=== PATIENT | female | born 1990 | race Two or more races ===

== ENCOUNTER 2021-04-09 15:27 | Emergency (ER) | payer MEDICAID ==
[~2021-04-09] VITALS: Ht 170.2 cm; Wt 93.6 kg
[~2021-04-09 15:27] MED LIST: NO HOME MEDS
[2021-04-09 18:00] VITALS: BP 113/58
--- NOTE | 2021-04-09 18:32 | PHYS DOC ---
Past Medical History Past Medical History: No Pertinent History Past Surgical History: Other Additional Past Surgical Histo: RECONSTRUCTIVE SURGERY TO THE RT SIDE OF FACE Smoking Status: Current Every Day Smoker Additional Information: 5-6 cigarettes daily Alcohol Use: Occasionally Drug Use: None Social History Narrative: occasional marijuana use General Adult EDM: Chief Complaint: BACK PAIN OR INJURY HPI: HPI: Patient is a 30 year old female who presents the ED today complaining of 8 out of 10 sharp intermittent bilateral low back pain, symptoms began 2 days ago after pulling her garage door down. Patient denies any pain radiating to bilateral lower extremities, denies any loss of bowel/bladder function. Denies any numbness or tingling to bilateral lower extremities. She states symptoms are worse on ambulation and certain movements. Denies anything specifically rel ieving her pain. Review of Systems: Review of Systems: Constitutional: Denies fever or chills. [] GI: Denies abdominal pain, nausea, vomiting, bloody stools or diarrhea. [] : Denies dysuria. [] Musculoskeletal: Reports low back pain Integument: Denies rash. [] Neurologic: Denies headache, focal weakness or sensory changes. [] [] Psychiatric: Denies depression or anxiety. [] Heart Score: C/O Chest Pain: N/A Risk Factors: Risk Factors: DM, Current or recent (<one month) smoker, HTN, HLP, family history of CAD, obesity. Risk Scores: Score 0 - 3: 2.5% MACE over next 6 weeks - Discharge Home Score 4 - 6: 20.3% MACE over next 6 weeks - Admit for Clinical Observation Score 7 - 10: 72.7% MACE over next 6 weeks - Early Invasive Strategies Allergies: Allergies: Allergies Coded Allergies Type Severity Reaction Last Updated Verified No Known Drug Allergies 04/09/21 No Physical Exam: PE: Constitutional: Well developed, well nourished, no acute distress, non-toxic appearance. [] Abdomen: Bowel sounds normal, soft, no tenderness, no masses, no pulsatile masses. [] Skin: Warm, dry, no erythema, no rash. [] Back: Diffuse paraspinal muscle tenderness bilateral lumbar spine, no midline lumbar spine tenderness, no CVA tenderness. [] Extremities: No tenderness, no cyanosis, no clubbing, ROM intact, no edema. [] Neurologic: Alert and oriented X 3, normal motor function, normal sensory function, no focal deficits noted. [] Psychologic: Affect normal, judgement normal, mood normal. [] Current Patient Data: Labs: Laboratory Tests Test 04/09/21 16:20 POC Urine HCG, Qualitative Hcg negative (Negative) Vital Signs: Vital Signs Date Time Temp Pulse Resp B/P (MAP) Pulse Ox O2 Delivery O2 Flow Rate FiO2 04/09/21 18:00 97.8 94 18 113/58 (76) 99 97.8 EKG: EKG: [] Radiology/Procedures: Radiology/Procedures: []PROCEDURE: LUMBAR SPINE 2-3V XR LUMBAR SPINE 2-3V History: Reason: pain pulling garage down / Spl. Instructions: / History: Technique: 3 views lumbar spine. Comparison: None. Findings: Normal vertebral body height and alignment. No acute fracture. Mild degenerative disc changes most prominent L5-S1. Calcification projecting over the right renal fossa measures 3 mm, likely nephrolithiasis. Impression: 1. Mild lumbar spondylosis most prominent L5-S1. 2. Probable right nephrolithiasis. Electronically signed by: Jean Faust DO (04/09/2021 7:06 PM) [facility] DICTATED and SIGNED BY: JEAN FAUST DO DATE: 04/09/21 [id number] 0 Course & Med Decision Making: Course & Med Decision Making Pertinent Labs and Imaging studies reviewed. (See chart for details) This is a 30-year-old female patient presented to the ED today with low back pain that began 2 days ago after pulling her garage door down. Lumbar spine x- rays are negative for any acute findings, noted for L5-S1 lumbar spondylosis and right nephrolithiasis. Discharged home. Follow-up with PCP. Provided return precautions Dragon Disclaimer: Bridget Disclaimer: This electronic medical record was generated, in whole or in part, using a voice recognition dictation system. Departure Departure Impression: Primary Impression: Lumbosacral strain Qualified Codes: S39.012A - Strain of muscle, fascia and tendon of lower back, initial encounter Additional Impressions: Degenerative joint disease (DJD) of lumbar spine Qualified Codes: M47.816 - Spondylosis without myelopathy or radiculopathy, lumbar region Right nephrolithiasis Disposition: HOME / SELF CARE / HOMELESS Condition: STABLE Referrals: NO PCP (PCP) Follow-up with your doctor in 1 week Patient Instructions: Arthritis, Degenerative-Brief, Kidney Stones, Lumbosacral Strain Additional Instructions: You were evaluated in the emergency room and noted to have arthritis of your lower back. Consider using a heating pad or ice on your low back. Take the prescribed medications as needed for your pain. Follow-up with your doctor in 1 week Scripts Naproxen (NAPROXEN) 500 Mg Tablet 1 TAB PO BID for pain, #14 TAB 0 Refills Prov: TYLOR BHATTI APRN 04/09/21 Cyclobenzaprine Hcl (CYCLOBENZAPRINE HCL) 10 Mg Tablet 1 TAB PO TID, #30 TAB Prov: TYLOR BHATTI APRN 04/09/21 TYLOR BHATTI APRN Apr 09, 2021 18:32
--- NOTE | 2021-04-09 19:08 | RAD ---
XR LUMBAR SPINE 2-3V History: Reason: pain pulling garage down / Spl. Instructions: / History: Technique: 3 views lumbar spine. Comparison: None. Findings: Normal vertebral body height and alignment. No acute fracture. Mild degenerative disc changes most pr ominent L5-S1. Calcification projecting over the right renal fossa measures 3 mm, likely nephrolithia sis. Impression: 1. Mild lumbar spondylosis most prominent L5-S1. 2. Probable right nephrolithiasis. Electronically signed by: Mauri Silva DO (04/09/2021 7:06 PM) [facility]
[2021-04-09] MEDS ORDERED: CYCL10TA19 PO (19:16)
[2021-04-09] MEDS ORDERED: NAPR-514 PO (19:16)
== END 2021-04-09 19:33 | disposition home or self-care (01) ==
LOC: ER 15:27
DX: S39.012A Strain of muscle, fascia and tendon of lower back, initial encounter (principal); M47.816 Spondylosis without myelopathy or radiculopathy, lumbar region; F17.200 Nicotine dependence, unspecified, uncomplicated; X50.9XXA Other and unspecified overexertion or strenuous movements or postures, initial encounter; Y93.89 Activity, other specified; Y92.89 Other specified places as the place of occurrence of the external cause; Y99.8 Other external cause status
CPT/HCPCS: 72100; 81025; 99283

== ENCOUNTER 2021-05-16 13:14 | Emergency (ER) | payer SELFPAY ==
[~2021-05-16] VITALS: Ht 170.2 cm; Wt 90.3 kg
[~2021-05-16 13:14] MED LIST changes: +CYCL10TA19 PO; +NAPR-514 PO
--- NOTE | 2021-05-16 13:45 | PHYS DOC ---
Past Medical History Past Medical History: No Pertinent History Past Surgical History: Other Additional Past Surgical Histo: RECONSTRUCTIVE SURGERY TO THE RT SIDE OF FACE Smoking Status: Current Every Day Smoker Alcohol Use: Occasionally Drug Use: None General Adult EDM: Chief Complaint: VAGINAL BLEEDING HPI: HPI: Patient is a 30 year old female who presents with 1 day of mid lower abdominal pain and blood spotting when wiping after urinating. She is also having some white milky vaginal discharge. She denies concern for STD. However her last menstrual cycle was at the beginning of March and she did get a positive test recently. She has not seen an OB doctor because she is just getting her Medicaid back. Patient denies chest pain, shortness of air, fever, back pain, nausea, vomiting, dizziness, diarrhea, headache. Patient has 3 living children and this will be her fourth . She has a smoker and her other history is right facial reconstruction surgery. Rates her discomfort at this time a 5 out of 10. Review of Systems: Review of Systems: Constitutional: Denies fever or chills. [] Eyes: Denies change in visual acuity. [] HENT: Denies nasal congestion or sore throat. [] Respiratory: Denies cough or shortness of breath. [] Cardiovascular: Denies chest pain or edema. [] GI: + abdominal pain, denies nausea, vomiting, bloody stools or diarrhea. [] : Denies dysuria. + Blood on toilet paper after wiping [] Musculoskeletal: Denies back pain or joint pain. [] Integument: Denies rash. [] Neurologic: Denies headache, focal weakness or sensory changes. [] Endocrine: Denies polyuria or polydipsia. [] Lymphatic: Denies swollen glands. [] Psychiatric: Denies depression or anxiety. [] Heart Score: C/O Chest Pain: No Allergies: Allergies: Allergies Coded Allergies Type Severity Reaction Last Updated Verified No Known Drug Allergies 04/09/21 No Physical Exam: PE: Constitutional: Well developed, well nourished, no acute distress, non-toxic appearance. [] HENT: Normocephalic, atraumatic, bilateral external ears normal, oropharynx sia st, no oral exudates, nose normal. [] Eyes: PERRLA, EOMI, conjunctiva normal, no discharge. [] Neck: Normal range of motion, no tenderness, supple, no stridor. [] Cardiovascular:Heart rate regular rhythm, no murmur [] Lungs & Thorax: Bilateral breath sounds clear to auscultation [] Abdomen: Bowel sounds normal, soft, no tenderness, no masses, no pulsatile masses. [] Skin: Warm, dry, no erythema, no rash. [] Back: No tenderness, no CVA tenderness. [] Extremities: No tenderness, no cyanosis, no clubbing, ROM intact, no edema. [] Neurologic: Alert and oriented X 3, normal motor function, normal sensory function, no focal deficits noted. [] Psychologic: Affect normal, judgement normal, mood normal. [] Normal physical exam Current Patient Data: Vital Signs: Vital Signs Date Time Temp Pulse Resp B/P (MAP) Pulse Ox O2 Delivery O2 Flow Rate FiO2 05/16/21 13:24 97.5 97 18 116/64 (81) 98 Room Air 97.5 EKG: EKG: [] Radiology/Procedures: Radiology/Procedures: [] Impression: [facility] [address] [place] [address] IMAGING REPORT Signed PATIENT: ELMER PRATER ACCOUNT: [id number] : 1990 LOCATION: ER AGE: 30 SEX: F EXAM STATUS: REG ER ORD. PHYSICIAN: JAIME GUTIÉRREZ APRN REASON: abdominal pain with spotting in PROCEDURE: OB < 14 WKS INDICATION: Reason: abdominal pain with spotting in / Spl. Instructions: / History: COMPARISON: None. TECHNIQUE: Grayscale and color ultrasound images of the pelvis. Transabdominal and transvaginal images obtained. Transvaginal images were needed to better visualize structures that were limited on transabdominal imaging. FINDINGS: Uterus: 88 x 84 x 59 mm. Intrauterine gestational sac is seen and unremarkable. Too early in gestation to adequately assess placenta. pole seen. CRL: 8 mm. Estimated Gestational Age: 6 weeks and 4 days Heart Beat: 117 Right Ovary: 26 x 25 x 14 mm. Left Ovary: 27 x 22 x 17 mm. Vascular flow identified to bilateral ovaries. IMPRESSION: * Intrauterine is seen with positive heart beat. * Recommend routine anomaly screening at 18-22 weeks. Electronically signed by: Marisa Ruiz MD (05/16/2021 3:46 PM) [id number] DICTATED and SIGNED BY: MARISA RUIZ MD DATE: 05/16/21 [id number] 0 Course & Med Decision Making: Course & Med Decision Making Pertinent Labs and Imaging studies reviewed. (See chart for details) See HPI. Alert and oriented x4. Ambulatory steady gait. Skin pink warm and dry. Abdomen is soft and nontender. Speaks in full clear sentences. No CVA tenderness. Vital signs are within normal limits. 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 She is given Rocephin 1 g in the ED. She will be sent home on cefdinir. Ultrasound showed no acute findings. [] Dragon Disclaimer: Dragon Disclaimer: This electronic medical record was generated, in whole or in part, using a voice recognition dictation system. Departure Departure Impression: Primary Impression: Urinary tract infection Qualified Codes: N30.00 - Acute cystitis without hematuria Additional Impressions: Bacterial vaginosis in Abdominal pain affecting Disposition: 01 HOME / SELF CARE / HOMELESS Condition: STABLE Referrals: NO PCP (PCP) CHRIS FAUST MD Patient Instructions: Abdominal Pain During , Bacterial Vaginosis, - Urinary Tract Infection Additional Instructions: Follow-up with an CALL CENTER OPERATOR as soon as possible. Take medication as prescribed and with food. Drink plenty of fluids to stay hydrated. If you start having severe abdominal pain or heavy vaginal bleeding return to emergency room. Scripts Metronidazole (METRONIDAZOLE) 500 Mg Tablet 1 TAB PO BID for 7 Days, #14 TAB 0 Refills Prov: JAIME GUTIÉRREZ SMOKE JUMPER SUPERVISOR 05/16/21 Nitrofurantoin Monohyd/M-Cryst (MACROBID 100 MG CAPSULE) 100 Mg Capsule 1 CAP PO BID for 7 Days, #14 CAP 0 Refills Prov: JAIME GUTIÉRREZ SMOKE JUMPER SUPERVISOR 05/16/21 BAFUSJAIME M SMOKE JUMPER SUPERVISOR May 16, 2021 13:45
[2021-05-16 14:12] LABS: BILIRUBIN,URINE NEGATIVE (NEG); CLARITY,URINE CLOUDY; COLOR,URINE YELLOW; NITRITE,URINE POSITIVE (NEG); PROTEIN,URINE NEGATIVE (NEG-TRACE); UROBILINOGEN,URINE 0.2 mg/dL (0.2 mg/dL)
[2021-05-16 14:22] LABS: BACTERIA,URINE MANY /HPF (0-FEW); RBC,URINE OCC /HPF (0-2)
[2021-05-16] MEDS ORDERED: cefTRIAXone IM 1 GM VIAL IM ONE (14:30)
[2021-05-16 15:24] LABS: BASO % 1 % (0-3); EOS # 0.2 x10^3/uL (0.0-0.7); EOS % 2 % (0-3); HEMATOCRIT 41.3 % (36.0-47.0); HEMOGLOBIN 13.7 g/dL (12.0-15.5); LYMPH % 23 % (24-48); MEAN CORPUSCULAR HEMOGLOBIN 29 pg (25-35); MEAN CORPUSCULAR HGB CONC 33 g/dL (31-37); MEAN CORPUSCULAR VOLUME 88 fL (79-100); MONO # 0.7 x10^3/uL (0.0-1.1); MONO % 7 % (0-9); NEUT % 67 % (31-73); PLATELET COUNT 199 x10^3/uL (140-400); RED CELL DISTRIBUTION WIDTH 13.8 % (11.5-14.5); WHITE BLOOD COUNT 8.9 x10^3/uL (4.0-11.0)
[2021-05-16 15:38] LABS: CALCIUM 8.9 mg/dL (8.5-10.1); CREATININE 0.7 mg/dL (0.6-1.0); POTASSIUM 3.8 mmol/L (3.5-5.1)
--- NOTE | 2021-05-16 15:48 | RAD ---
INDICATION: Reason: abdominal pain with spotting in / Spl. Instructions: / History: COMPARISON: None. TECHNIQUE: Grayscale and color ultrasound images of the pelvis. Transabdominal and transvaginal imag es obtained. Transvaginal images were needed to better visualize structures that were limited on tra nsabdominal imaging. FINDINGS: Uterus: 88 x 84 x 59 mm. Intrauterine gestational sac is seen and unremarkable. Too early in gestation to adequately assess p lacenta. pole seen. CRL: 8 mm. Estimated Gestational Age: 6 weeks and 4 days Heart Beat: 117 Right Ovary: 26 x 25 x 14 mm. Left Ovary: 27 x 22 x 17 mm. Vascular flow identified to bilateral ovaries. IMPRESSION: * Intrauterine is seen with positive heart beat. * Recommend routine anomaly screening at 18-22 weeks. Electronically signed by: Cliff Hartman MD (05/16/2021 3:46 PM) [id number]
[2021-05-16 15:50] LABS: ALBUMIN 3.5 g/dL (3.4-5.0); ALBUMIN/GLOBULIN RATIO 0.9 (1.0-1.7); TOTAL BILIRUBIN 0.4 mg/dL (0.2-1.0); TOTAL PROTEIN 7.6 g/dL (6.4-8.2)
[2021-05-16] MEDS ORDERED: NITR100C62 PO (16:30)
[2021-05-16] MEDS ORDERED: METR-34 PO (16:30)
[2021-05-16 16:35] VITALS: BP 118/50
[2021-05-19 20:08] LABS: GC PROBE Negative (Negative)
== END 2021-05-16 17:00 | disposition home or self-care (01) ==
LOC: ER 13:14
DX: O23.11 Infections of bladder in pregnancy, first trimester (principal); O23.591 Infection of other part of genital tract in pregnancy, first trimester; B96.89 Other specified bacterial agents as the cause of diseases classified elsewhere; O99.331 Smoking (tobacco) complicating pregnancy, first trimester; Z3A.01 Less than 8 weeks gestation of pregnancy
CPT/HCPCS: 36415; 76801; 80053; 81001; 81025; 84702; 85025; 86850; 86900; 86901; 87086; 87491; 87591; 96372; 99284; J0696; Q0111; 87077; 87186

== ENCOUNTER 2021-07-30 15:07 | Emergency (ER) | payer MEDICAID ==
[~2021-07-30] VITALS: Ht 170.2 cm; Wt 98.6 kg
[~2021-07-30 15:07] MED LIST changes: +METR-34 PO; +NITR100C62 PO
[2021-07-30 15:40] VITALS: BP 127/58
--- NOTE | 2021-07-30 15:50 | ED.ADGEN ---
Past Medical History Past Medical History: No Pertinent History Past Surgical History: Other Additional Past Surgical Histo: RECONSTRUCTIVE SURGERY TO THE RT SIDE OF FACE Smoking Status: Current Every Day Smoker Alcohol Use: Occasionally Drug Use: None General Adult EDM: Chief Complaint: COUGH HPI: HPI: Patient is a 31-year-old female who arrives ambulatory to the emergency department complaining of a dry cough with a sore throat over the past 2 days. Patient reports she has a child at home who has had symptoms similar to this over the past week with added congestion and body aches. The patient's son was evaluated by their fisher lobster and was determined of a viral infection. The mother has similar symptoms however her illness is much more limited than that of her child's. The patient denies any history of fever. She further denies pain with swallowing. Additionally she denies any chest pain, shortness of air, headache or neck stiffness. The patient further states that she is not vaccinated against COVID-19. She is awake, alert and nontoxic-appearing. Review of Systems: Review of Systems: Constitutional: Denies fever or chills. [] Eyes: Denies change in visual acuity. [] HENT: Reports sore throat. Denies nasal congestion. [] Respiratory: Reports cough. Denies shortness of breath. [] Cardiovascular: Denies chest pain or edema. [] GI: Denies abdominal pain, nausea, vomiting, bloody stools or diarrhea. [] : Denies dysuria. [] Musculoskeletal: Denies back pain or joint pain. [] Integument: Denies rash. [] Neurologic: Denies headache, focal weakness or sensory changes. [] Endocrine: Denies polyuria or polydipsia. [] Lymphatic: Denies swollen glands. [] Psychiatric: Denies depression or anxiety. [] Allergies: Allergies: Allergies Coded Allergies Type Severity Reaction Last Updated Verified No Known Drug Allergies 04/09/21 No Physical Exam: PE: Constitutional: Well developed, well nourished, no acute distress, non-toxic appearance. [] HENT: Normocephalic, atraumatic, bilateral external ears normal, oropharynx moist, no oral exudates, nose normal. [] Eyes: PERRLA, EOMI, conjunctiva normal, no discharge. [] Neck: Normal range of motion, no tenderness, supple, no stridor. [] Cardiovascular:Heart rate regular rhythm, no murmur [] Lungs & Thorax: Bilateral breath sounds clear to auscultation [] Abdomen: Bowel sounds normal, soft, no tenderness, no masses, no pulsatile masses. [] Skin: Warm, dry, no erythema, no rash. [] Back: No tenderness, no CVA tenderness. [] Extremities: No tenderness, no cyanosis, no clubbing, ROM intact, no edema. [] Neurologic: Alert and oriented X 3, normal motor function, normal sensory function, no focal deficits noted. [] Psychologic: Affect normal, judgement normal, mood normal. [] Current Patient Data: Labs: Laboratory Tests Test 07/30/21 16:05 Influenza Type A Antigen Negative (NEGATIVE) Influenza Type B Antigen Negative (NEGATIVE) SARS-CoV-2 Antigen (Rapid) Negative (NEGATIVE) Vital Signs: Vital Signs Date Time Temp Pulse Resp B/P (MAP) Pulse Ox O2 Delivery O2 Flow Rate FiO2 07/30/21 15:40 97.8 87 16 127/58 (81) 95 Room Air 97.8 EKG: EKG: [] Heart Score: C/O Chest Pain: No Risk Factors: Risk Factors: DM, Current or recent (<one month) smoker, HTN, HLP, family history of CAD, obesity. Risk Scores: Score 0 - 3: 2.5% MACE over next 6 weeks - Discharge Home Score 4 - 6: 20.3% MACE over next 6 weeks - Admit for Clinical Observation Score 7 - 10: 72.7% MACE over next 6 weeks - Early Invasive Strategies Radiology/Procedures: Radiology/Procedures: [] Course & Med Decision Making: Course & Med Decision Making Pertinent Labs and Imaging studies reviewed. (See chart for details) [] Dragon Disclaimer: Dragon Disclaimer: This electronic medical record was generated, in whole or in part, using a voice recognition dictation system. Departure Departure Impression: Primary Impression: Upper respiratory infection Disposition: HOME / SELF CARE / HOMELESS Condition: STABLE Referrals: NO PCP (PCP) Patient Instructions: Upper Respiratory Infection, Adult Additional Instructions: Follow-up with primary care physician in 1 week if not improving. Scripts Albuterol Sulfate (PROAIR HFA INHALER) 8.5 Gm Hfa.aer.ad 2 PUFF IH PRN Q4-6HRS PRN for wheezing for 21 Days, #1 INHALER 0 Refills Prov: CIELO ANDREWS DO 07/30/21 Prednisone (PREDNISONE) 50 Mg Tablet 1 TAB PO DAILY for 5 Days, #5 TAB Prov: CIELO ANDREWS DO 07/30/21 CIELO ANDREWS DO July 30, 2021 15:50
[2021-07-30 16:30] LABS: INFLUENZA A PATIENT NEGATIVE (NEGATIVE); INFLUENZA B PATIENT NEGATIVE (NEGATIVE)
[2021-07-30] MEDS ORDERED: ALBU2.5V8 IH (16:36)
[2021-07-30] MEDS ORDERED: PRED50TA PO (16:36)
[2021-07-30] MEDS ORDERED: BENZ200C47 PO (16:37)
== END 2021-07-30 16:57 | disposition home or self-care (01) ==
LOC: ER 15:07
DX: J06.9 Acute upper respiratory infection, unspecified (principal); Z20.822 Contact with and (suspected) exposure to COVID-19; F17.200 Nicotine dependence, unspecified, uncomplicated
CPT/HCPCS: 87426; 87804; 99283